=== PATIENT | female | born 1975 | race Caucasian/White ===

== ENCOUNTER 2016-10-14 13:30 | Emergency (ER) | payer OTHER ==
[~2016-10-14] VITALS: Ht 172.7 cm; Wt 91.5 kg
[~2016-10-14 13:30] MED LIST: CALCTAB5 PO; FEXO1TAB49 PO; LISI-729 PO; MULT-506 PO; TRAZ1TAB52 PO
[2016-10-14 13:34] VITALS: TEMP 36.7; Ht 172.7 cm; Wt 91.5 kg
[2016-10-14] MEDS ORDERED: CALC-393 PO (14:15)
[2016-10-14] MEDS ORDERED: DIVA250T PO (14:17)
[2016-10-14] MEDS ORDERED: SPIR25TA PO (14:17)
--- NOTE | 2016-10-14 14:37 | EMERGENCY ROOM VISIT NOTE ---
History First contact with patient: 13:53 Chief Complaint: GROIN PAIN Stated Complaint: GROIN AND LEG PAIN History of Present Illness The patient is a 41 year old female who presents to the Emergency Room with complaints of right leg pain. The patient states the pain is in the right groin. She states the pain is from the grinding to the knee. She states the pain is sharp and rated a 10/10. She states it is much worse if she tries to cross her legs. She denies any falls or injuries. She denies any back pain. She denies any numbness, tingling or weakness. She denies any redness, warmth, swelling, fever. The patient reports a history of back pain but states this feels different. She denies any saddle anesthesia. She denies any loss of bowel or bladder control. She denies any urinary symptoms. She denies any abdominal pain, nausea or vomiting. Review of Systems A 10 system review of systems was completed with positives and pertinent negatives listed in the HPI. Past Medical/Surgical History Medical Problems: (1) Asthma (2) Pneumonia Surgical Problems: (1) History of gastric bypass Family History FH: cancer FH: diabetes mellitus FH: gallbladder disease FH: heart disease FH: hypertension FH: lung disease Social History Smoking Status: Current Every Day Smoker Alcohol Use: none Drug Use: none Marital Status: single, in relationship Housing Status: lives with significant other Occupation Status: employed Current/Historical Medications Scheduled Calcium Carbonate (Calcium), 600 MG PO DAILY Divalproex Sodium (Depakote Er), 250 MG PO BID Fexofenadine Hcl (Juliette Allergy), 180 MG PO DAILY Multivitamin (Multivitamin), 1 TAB PO DAILY Spironolactone (Aldactone), 25 MG PO DAILY Allergies Coded Allergies: Pea (Unverified Allergy, Intermediate, "THROAT TINGLES", 10/14/16) [place] (Unverified Allergy, Intermediate, "THROAT TINGLES", 10/14/16) Pineapple (Unverified Allergy, Intermediate, "THROAT TINGLES", 10/14/16) Tramadol (Verified Allergy, Intermediate, HIVES, 10/14/16) Adhesives (Verified Allergy, Mild, RASH, 10/14/16) BEE STING (Verified Allergy, Mild, HIVES, 10/14/16) NSAIDs (Unverified Allergy, Mild, GI SYMPTOMS, 10/14/16) [place] (Unverified Allergy, Unknown, UNKNOWN, 10/14/16) Physical Exam Vital Signs Date Time Temp Pulse Resp B/P Pulse Ox O2 Delivery O2 Flow Rate FiO2 10/14/16 15:45 70 16 108/66 100 10/14/16 13:34 36.7 80 18 109/72 99 Room Air Physical Exam VITALS: Vitals are noted on the nurse's note and reviewed by myself. Vital signs stable. GENERAL: This is a 41-year-old female, in no acute distress, nondiaphoretic, well-developed well-nourished. SKIN: The skin was without rashes, erythema, edema, or bruising. There is no tenting of the skin. Capillary reflex less than 2 seconds. HEAD: Normocephalic atraumatic. EARS: The external ears are normal in appearance. EYES: Pupils equal round and reactive to light and accommodation. Conjunctivae without injection, sclerae without icterus. Extraocular movements intact. NOSE: Patent, turbinates without inflammation or discharge. MOUTH: Mucous membranes moist. Tonsils are not enlarged. Pharynx without erythema or exudate. Uvula midline. Airway patent. Tongue does not deviate. NECK: Supple without nuchal rigidity. No JVD. HEART: Regular rate and rhythm without murmurs gallops or rubs. LUNGS: Clear to auscultation bilaterally without wheezes, rales or rhonchi. No retractions or accessory muscle use. ABDOMEN: Positive bowel sounds x 4. Soft, nontender, without masses or organomegaly. MUSCULOSKELETAL: No muscle atrophy, erythema, or edema noted. Full range of motion without joint tenderness in all extremities. There is tenderness to palpation of the right medial thigh. There is no erythema, warmth, swelling. There is no ecchymosis. There are no palpable cords. The patient has pain with adduction reduction of the right leg. Strength is 5/5 in the lower extremities bilaterally. NEURO: Patient was alert and oriented to person place and time. Normal sensation to light and sharp touch. Deep tendon reflexes 2+ throughout. No focal neurological deficits. Medical Decision & Procedures ER Provider Diagnostic Interpretation: Venous Doppler right leg RIGHT VENOUS DOPP LOWER EXT UNILAT CLINICAL HISTORY: right leg pain Right pain. Edema. TECHNIQUE: Venous Doppler COMPARISON STUDY: None FINDINGS: Normal study IMPRESSION: Normal study ED Course Patient was seen and examined. Previous visits were reviewed. An ultrasound was obtained as above. There is no evidence for DVT or superficial thrombus phlebitis. There is no erythema or warmth to suggest infection. The patient does not have any back pain. She does not have any neurologic deficit on exam or by history. This likely represents a muscle strain. The patient cannot take NSAIDs for tramadol. She was advised to try rest, ice, elevation and Tylenol. She then asked for something for pain to help her sleep. I advised her that narcotics are not indicated for a muscle strain. Additionally, the patient is on a no narcotic prescription treatment plan. I did review her history in the PDMP. She has received multiple prescriptions for narcotics from multiple providers and filled at multiple pharmacies. The patient should follow-up with her family doctor for further evaluation and management. Medical Decision The differential diagnosis includes superficial, phlebitis, DVT, cellulitis, radiculopathy, muscle strain, muscle spasm, among others Impression Primary Impression: Muscle strain, lower leg Departure Information Dispostion Home / Self-Care Condition GOOD Referrals No Doctor, Assigned (PCP) Po Alcala MD Patient Instructions ED Strain Muscle Ext, My [facility] [employer] Additional Instructions Rest, ice and elevation Contact your family doctor to schedule a follow up appointment Return with worsening symptoms Problem Qualifiers Primary Impression: Muscle strain, lower leg Encounter type: initial encounter Laterality: right Qualified Codes: S86.911A - Strain of unspecified muscle(s) and tendon(s) at lower leg level, right leg, initial encounter
--- NOTE | 2016-10-14 15:44 | DIAGNOSTIC IMAGING REPORT ---
Venous Doppler right leg RIGHT VENOUS DOPP LOWER EXT UNILAT CLINICAL HISTORY: right leg pain Right pain. Edema. TECHNIQUE: Venous Doppler COMPARISON STUDY: None FINDINGS: Normal study IMPRESSION: Normal study Electronically signed by: Thee Morrison M.D. 10/14/2016 3:43 PM Dictated Date/Time: 10/14/2016 3:42 PM
[2016-10-14 15:45] VITALS: BP 108/66; PULSE 70; O2SAT 100
== END 2016-10-14 16:00 | disposition home or self-care (01) ==
LOC: C.EDB 13:32 → C.EDD 16:00
DX: S86.911A Strain of unspecified muscle(s) and tendon(s) at lower leg level, right leg, initial encounter (principal); J45.909 Unspecified asthma, uncomplicated; Z79.899 Other long term (current) drug therapy; Z87.01 Personal history of pneumonia (recurrent); Z82.49 Family history of ischemic heart disease and other diseases of the circulatory system; Z83.3 Family history of diabetes mellitus; Z83.6 Family history of other diseases of the respiratory system; Z83.79 Family history of other diseases of the digestive system; F17.200 Nicotine dependence, unspecified, uncomplicated; X58.XXXA Exposure to other specified factors, initial encounter